=== PATIENT | female | born 1975 | race Caucasian/White ===

== ENCOUNTER → 2018-11-06 | Outpatient (CLI) | payer OTHER ==
--- NOTE | 2018-11-06 09:42 | REP ---
Left Lower Extremity Vein Mapping: Positive reflux is greater than 0.5 seconds. Right Reflux Left Reflux CFV Reflux -- Yes Ant. Acc. GSV Present -- No Reflux -- No Greater saph/fem junction -- mm -- 9.0 mm yes Greater saph vein mid thigh -- mm -- 4.0 mm yes Greater saph vein at knee -- 9.0 mm Yes SFV PROX -- Yes SFV MID -- Yes SFV DISTAL -- Yes POPLITEAL VEIN -- Yes LSV -- mm -- 5.0 mm yes Left lower extremity deep vein duplex ultrasound for thrombus: The deep veins demonstrate normal compression, normal Doppler color flow and normal Doppler waveforms with respiration and augmentation from the popliteal vein to the common femoral vein. Impression: There is no deep vein thrombus. Electronically Signed by León Harrell MD 11/06/2018 09:33 A
== END ==
LOC: M RAD 08:11
PROVIDERS: ATTEND Registered Nurse
DX: I87.2 Venous insufficiency (chronic) (peripheral) (principal)